=== PATIENT | male | born 1950 | race Caucasian/White ===

== ENCOUNTER 2017-08-22 21:13 | Inpatient (IN) ==
[2017-08-22] MEDS ORDERED: PIPERACILLIN/TAZOBACTAM 3,375 MG in SODIUM CHLORIDE 0.9% 100 ML IV STA (21:53)
[2017-08-22] MEDS ORDERED: FUROSEMIDE 100 MG/10 ML VIAL IV STA (21:53)
[2017-08-22] MEDS ORDERED: SODIUM CHLORIDE 0.9% 500 ML IV STA (21:53)
[2017-08-22] MEDS ORDERED: ONDANSETRON 4 MG/2 ML VIAL IV STA (21:53)
[2017-08-22] MEDS ORDERED: methylPREDNISolone SOD SUC 125 MG/2 ML VIAL IV STA (21:53)
[2017-08-22] MEDS ORDERED: ALBUTEROL 2.5 MG/3 ML NEB RESP TX SCH (22:00)
[2017-08-22] MEDS ORDERED: methylPREDNISolone SOD SUC 125 MG/2 ML VIAL ONE (22:03)
[2017-08-22] MEDS ORDERED: FUROSEMIDE 40 MG/4 ML VIAL ONE (22:03)
[2017-08-22] MEDS ORDERED: ONDANSETRON 4 MG/2 ML VIAL ONE (22:03)
[2017-08-22] MEDS ORDERED: FUROSEMIDE 20 MG/2 ML VIAL ONE (22:03)
[2017-08-22] MEDS ORDERED: PIPERACILLIN/TAZOBACTAM 3,375 MG VIAL IV ONE (22:03)
[2017-08-22 22:15] LABS: Basophils % 0.1 % (0.0-0.8); Eosinophils # 0.3 10*3/uL (0.0-0.87); Eosinophils % 1.5 % (0.00-10.9); Hematocrit 37.6 VOL% (42.0-52.0); Hemoglobin 12.7 GM/DL (14.0-18.0); Immature Granulocytes % 0.8 %; Immature Granulocytes Absolute 0.18 #; Lymphocytes # 3.2 10*3/uL (1.4-4.0); Lymphocytes % 14.3 % (21.2-54.2); Mean Corpuscular HGB Conc 33.8 GM/DL (32-36); Mean Corpuscular Hemoglobin 32 PG (27-34); Mean Corpuscular Volume 94.5 FL (87-102); Mean Platelet Volume 10.2 FL (9.6-12.0); Monocytes # 2.1 10*3/uL (0.11-0.8); Monocytes % 9.4 % (1.7-12.7); Neutrophils # 16.8 10*3/uL (1.4-7.4); Neutrophils % 73.9 % (38.7-73.9); Platelet Count 305 T/CUMM (130-400); Red Blood Count 3.98 MC/CUMM (3.8-5.5); Red Cell Distribution Width 13.5 % (9.3-17.3); White Blood Count 22.7 T/CUMM (4-12)
[2017-08-22 22:24] LABS: PT Patient Result 10.8 SECS
[2017-08-22 22:26] LABS: ABG HCO3 26.1 MMOL/L (20-26); ABG Oxygen Saturation 94.2 % (95-100); ABG PCO2 53.5 MM HG (35-48); ABG PH 7.341 (7.35-7.45); ABG PO2 78.1 MM HG (80-95); ABG TCO2 25.7 MMOL/L (23-27); Allen Test Positive
[2017-08-22 22:42] LABS: Albumin 2.6 G/DL (3.4-5.0); Bilirubin,Total 0.4 MG/DL (0.2-1.0); Calcium 8.3 MG/DL (8.5-10.1); Lactic Acid 1.2 MMOL/L (0.4-2.0); Potassium 4.5 MMOL/L (3.5-5.1); Total Protein 6.3 G/DL (6.4-8.3)
[2017-08-22 22:45] LABS: Troponin I Only 0.295 NG/ML (0.00-0.045)
[2017-08-22 23:21] LABS: Atypical Lymphocytes Few; Band Neutrophils 5 % (0-10); Eosinophils 3 % (0-10); Lymphocytes 15 % (20-55); Macrocytosis 1+; Platelet Estimate Normal; Segmented Neutrophils 70 % (50-85); Total Cells Counted 100
[2017-08-22 23:48] LABS: Apearance,Urine CLEAR (Clear); Bilirubin,Urine Negative (Negative); Blood, Urine Negative (Negative); Glucose,Urine (UA) Negative (Negative); Hyaline Casts,Urine 1 /LPF (0-3); Ketones,Urine Negative (Negative); Mucus,Urine Occasional /LPF (Occasional); Nitrite,Urine Negative (Negative); Protein,Urine Negative; Urine Color Straw (Yellow); Urine Specific Gravity 1.008 (1.001-1.035); Urine Urobilinogen < 2.0 EU/DL (0.2-1.0); WBC,Urine <1 /HPF (0-6)
[2017-08-23] MEDS ORDERED: SODIUM CHLORIDE 0.9% 1,000 ML IV SCH (02:34)
[2017-08-23] MEDS ORDERED: ALBUTEROL 2.5 MG/3 ML NEB RESP TX PRN (02:34)
[2017-08-23] MEDS ORDERED: PROMETHAZINE 25 MG/1 ML VIAL IM PRN (02:34)
[2017-08-23] MEDS ORDERED: MORPHINE 2 MG/1 ML SYRINGE IV PRN (02:34)
[2017-08-23] MEDS ORDERED: LACTULOSE 20 GM/30 ML UDCUP PO PRN (02:34)
[2017-08-23] MEDS ORDERED: PROMETHAZINE 25 MG TABLET PO PRN (02:34)
[2017-08-23] MEDS ORDERED: DOCUSATE SODIUM 100 MG CAPSULE PO PRN (02:34)
[2017-08-23] MEDS ORDERED: ONDANSETRON 4 MG/2 ML VIAL IV PRN (02:34)
[2017-08-23] MEDS: LEVOFLOXACIN INJ 500 MG in PREMIX 1 EACH IV SCH (03:05)
[2017-08-23] MEDS: ENOXAPARIN 40 MG/0.4 ML SYRINGE SUBCUT SCH ×2 (03:05→20:24)
[2017-08-23 04:45] LABS: Basophils % 0.1 % (0.0-0.8); Hematocrit 36.6 VOL% (42.0-52.0); Hemoglobin 12.5 GM/DL (14.0-18.0); Immature Granulocytes % 1.4 %; Immature Granulocytes Absolute 0.31 #; Lymphocytes # 1.9 10*3/uL (1.4-4.0); Lymphocytes % 8.6 % (21.2-54.2); Mean Corpuscular HGB Conc 34.2 GM/DL (32-36); Mean Corpuscular Hemoglobin 31 PG (27-34); Mean Platelet Volume 10.3 FL (9.6-12.0); Monocytes # 0.6 10*3/uL (0.11-0.8); Neutrophils # 18.8 10*3/uL (1.4-7.4); Neutrophils % 86.9 % (38.7-73.9); Platelet Count 278 T/CUMM (130-400); Red Blood Count 3.98 MC/CUMM (3.8-5.5); Red Cell Distribution Width 13.3 % (9.3-17.3); White Blood Count 21.6 T/CUMM (4-12)
[2017-08-23 05:10] LABS: Band Neutrophils 1 % (0-10); Giant Platelets Few; Hypochromasia 1+; Lymphocytes 9 % (20-55); Ovalocytes Slight; Platelet Estimate Adequate; Segmented Neutrophils 89 % (50-85); Total Cells Counted 100
[2017-08-23 05:16] LABS: Albumin 2.6 G/DL (3.4-5.0); Bilirubin,Total 0.7 MG/DL (0.2-1.0); Calcium 7.7 MG/DL (8.5-10.1); Osmolality,Calculated 284.8 MOS/KG (273-304); Potassium 4.4 MMOL/L (3.5-5.1); Total Protein 5.9 G/DL (6.4-8.3)
[2017-08-23] MEDS: PIPERACILLIN/TAZOBACTAM 3,375 MG in SODIUM CHLORIDE 0.9% 100 ML IV SCH ×3 (05:27→14:44)
[2017-08-23] MEDS: ALBUTEROL/IPRATROPIUM 3 ML NEB RESP TX SCH ×3 (07:21→19:58)
[2017-08-23] MEDS ORDERED: ASPIRIN EC 325 MG TABLET PO SCH (09:00)
[2017-08-23 09:12] LABS: Lymphocytes,Pleural Fluid 19 %; Monocytes,Pleural Fluid 11 %; Neutrophils,Pleural Fluid 70 %
[2017-08-23 09:14] LABS: RBC,Pleural Fluid 7494 T/CUMM
[2017-08-23] MEDS: PANTOPRAZOLE 40 MG TABLET PO SCH (09:55)
[2017-08-23 10:36] LABS: Troponin I Only 0.114 NG/ML (0.00-0.045)
[2017-08-23] MEDS: DIVALPROEX 250 MG TABLET PO SCH ×2 (14:41→20:24)
[2017-08-23] MEDS: SODIUM CHLORIDE 0.45% 1,000 ML IV SCH (17:37)
[2017-08-23] MEDS: traZODone 50 MG TABLET PO SCH (20:23)
[2017-08-23] MEDS: LATANOPROST 0.005% OPH SOLN 2.5 ML BOTTLE BOTH EYES SCH (20:24)
[2017-08-23] MEDS ORDERED: DORZOLAMIDE/TIMOLOL OPH SOLN 10 ML BOTTLE BOTH EYES SCH (21:00)
[2017-08-24] MEDS: ALBUTEROL/IPRATROPIUM 3 ML NEB RESP TX SCH ×4 (00:08→19:09)
[2017-08-24] MEDS: PHENOL 1.4% THROAT SPRAY 177 ML BOTTLE PO PRN (00:19)
[2017-08-24] MEDS: LEVOFLOXACIN INJ 500 MG in PREMIX 1 EACH IV SCH (03:54)
[2017-08-24 06:07] LABS: Basophils % 0.1 % (0.0-0.8); Hemoglobin 11.4 GM/DL (14.0-18.0); Immature Granulocytes % 1.3 %; Immature Granulocytes Absolute 0.25 #; Lymphocytes # 2.5 10*3/uL (1.4-4.0); Lymphocytes % 12.7 % (21.2-54.2); Mean Corpuscular HGB Conc 33.5 GM/DL (32-36); Mean Corpuscular Hemoglobin 32 PG (27-34); Mean Platelet Volume 10.5 FL (9.6-12.0); Monocytes # 1.3 10*3/uL (0.11-0.8); Monocytes % 6.8 % (1.7-12.7); Neutrophils # 15.4 10*3/uL (1.4-7.4); Neutrophils % 79.1 % (38.7-73.9); Platelet Count 295 T/CUMM (130-400); Red Blood Count 3.58 MC/CUMM (3.8-5.5); Red Cell Distribution Width 13.5 % (9.3-17.3); White Blood Count 19.5 T/CUMM (4-12)
[2017-08-24] MEDS: PIPERACILLIN/TAZOBACTAM 3,375 MG in SODIUM CHLORIDE 0.9% 100 ML IV SCH ×4 (06:21→22:20)
[2017-08-24] MEDS: SODIUM CHLORIDE 0.45% 1,000 ML IV SCH (06:32)
[2017-08-24 06:36] LABS: Calcium 7.7 MG/DL (8.5-10.1); Osmolality,Calculated 285.5 MOS/KG (273-304); Potassium 4.6 MMOL/L (3.5-5.1)
[2017-08-24] MEDS: MULTIVITAMIN (CENTRUM) TABLET PO SCH (09:09)
[2017-08-24] MEDS: DIVALPROEX 250 MG TABLET PO SCH ×2 (09:09→20:25)
[2017-08-24] MEDS: BISOPROLOL/HCTZ 2.5-6.25 MG TABLET PO SCH (09:09)
[2017-08-24] MEDS: ASPIRIN EC 81 MG TABLET PO SCH (09:09)
[2017-08-24] MEDS: CHOLECALCIFEROL 5,000 UNIT TABLET PO SCH (09:09)
[2017-08-24] MEDS: MONTELUKAST 10 MG TABLET PO SCH (09:10)
[2017-08-24] MEDS: PANTOPRAZOLE 40 MG TABLET PO SCH (09:10)
[2017-08-24] MEDS ORDERED: PIPERACILLIN/TAZOBACTAM 3,375 MG VIAL IV ONE (14:09)
[2017-08-24] MEDS ORDERED: DIGOXIN 0.5 MG/2 ML AMP IV ONE (14:44)
[2017-08-24] MEDS ORDERED: DIGOXIN 0.5 MG/2 ML AMP ONE (14:59)
[2017-08-24] MEDS ORDERED: SODIUM CHLORIDE 0.45% 1,000 ML IV SCH (15:00)
[2017-08-24] MEDS: traZODone 50 MG TABLET PO SCH (20:25)
[2017-08-24] MEDS: ENOXAPARIN 40 MG/0.4 ML SYRINGE SUBCUT SCH (20:26)
[2017-08-24] MEDS: LATANOPROST 0.005% OPH SOLN 2.5 ML BOTTLE BOTH EYES SCH (20:29)
[2017-08-25] MEDS: ALBUTEROL/IPRATROPIUM 3 ML NEB RESP TX SCH ×4 (00:32→20:02)
[2017-08-25] MEDS: LEVOFLOXACIN INJ 500 MG in PREMIX 1 EACH IV SCH (02:23)
[2017-08-25 06:01] LABS: Basophils % 0.2 % (0.0-0.8); Eosinophils # 0.1 10*3/uL (0.0-0.87); Eosinophils % 0.8 % (0.00-10.9); Hematocrit 34.6 VOL% (42.0-52.0); Hemoglobin 11.6 GM/DL (14.0-18.0); Immature Granulocytes % 2.5 %; Immature Granulocytes Absolute 0.33 #; Lymphocytes # 2.7 10*3/uL (1.4-4.0); Lymphocytes % 20.8 % (21.2-54.2); Mean Corpuscular HGB Conc 33.5 GM/DL (32-36); Mean Corpuscular Hemoglobin 31 PG (27-34); Mean Corpuscular Volume 93.5 FL (87-102); Mean Platelet Volume 10.3 FL (9.6-12.0); Monocytes # 1.9 10*3/uL (0.11-0.8); Monocytes % 14.7 % (1.7-12.7); Platelet Count 310 T/CUMM (130-400); Red Cell Distribution Width 13.7 % (9.3-17.3); White Blood Count 13.1 T/CUMM (4-12)
[2017-08-25] MEDS: PIPERACILLIN/TAZOBACTAM 3,375 MG in SODIUM CHLORIDE 0.9% 100 ML IV SCH ×3 (06:12→22:19)
[2017-08-25 06:16] LABS: Calcium 7.8 MG/DL (8.5-10.1); Osmolality,Calculated 276.8 MOS/KG (273-304); Potassium 4.8 MMOL/L (3.5-5.1)
[2017-08-25] MEDS: CHOLECALCIFEROL 5,000 UNIT TABLET PO SCH (09:45)
[2017-08-25] MEDS: MULTIVITAMIN (CENTRUM) TABLET PO SCH (09:45)
[2017-08-25] MEDS: ASPIRIN EC 81 MG TABLET PO SCH (09:45)
[2017-08-25] MEDS: MONTELUKAST 10 MG TABLET PO SCH (09:45)
[2017-08-25] MEDS: PANTOPRAZOLE 40 MG TABLET PO SCH (09:45)
[2017-08-25] MEDS: BISOPROLOL/HCTZ 2.5-6.25 MG TABLET PO SCH (09:45)
[2017-08-25] MEDS: DIVALPROEX 250 MG TABLET PO SCH ×2 (09:46→20:22)
[2017-08-25] MEDS: LACTOBACILLUS ACIDOPHILUS/BULGARICUS CAPLET PO SCH (12:28)
[2017-08-25] MEDS: LATANOPROST 0.005% OPH SOLN 2.5 ML BOTTLE BOTH EYES SCH (20:22)
[2017-08-25] MEDS: traZODone 50 MG TABLET PO SCH (20:22)
[2017-08-25] MEDS: ENOXAPARIN 40 MG/0.4 ML SYRINGE SUBCUT SCH (20:23)
[2017-08-26] MEDS: ALBUTEROL/IPRATROPIUM 3 ML NEB RESP TX SCH ×4 (00:45→20:27)
[2017-08-26] MEDS: PHENOL 1.4% THROAT SPRAY 177 ML BOTTLE PO PRN (01:30)
[2017-08-26] MEDS: LEVOFLOXACIN INJ 500 MG in PREMIX 1 EACH IV SCH (02:40)
[2017-08-26 05:51] LABS: Basophils % 0.2 % (0.0-0.8); Eosinophils # 0.2 10*3/uL (0.0-0.87); Eosinophils % 1.4 % (0.00-10.9); Hematocrit 35.6 VOL% (42.0-52.0); Hemoglobin 12.4 GM/DL (14.0-18.0); Immature Granulocytes Absolute 0.62 #; Lymphocytes % 19.2 % (21.2-54.2); Mean Corpuscular HGB Conc 34.8 GM/DL (32-36); Mean Corpuscular Hemoglobin 32 PG (27-34); Mean Corpuscular Volume 91.3 FL (87-102); Mean Platelet Volume 9.9 FL (9.6-12.0); Neutrophils # 9.6 10*3/uL (1.4-7.4); Neutrophils % 62.2 % (38.7-73.9); Platelet Count 310 T/CUMM (130-400); Red Cell Distribution Width 13.8 % (9.3-17.3); White Blood Count 15.4 T/CUMM (4-12)
[2017-08-26 06:22] LABS: Eosinophils 2 % (0-10); Giant Platelets Few; Hypochromasia 1+; Lymphocytes 16 % (20-55); Ovalocytes Slight; Platelet Estimate Adequate; Segmented Neutrophils 71 % (50-85); Total Cells Counted 100
[2017-08-26] MEDS: PIPERACILLIN/TAZOBACTAM 3,375 MG in SODIUM CHLORIDE 0.9% 100 ML IV SCH ×3 (06:30→22:09)
[2017-08-26 06:34] LABS: Albumin 2.3 G/DL (3.4-5.0); Bilirubin,Total 0.8 MG/DL (0.2-1.0); Calcium 8.1 MG/DL (8.5-10.1); Osmolality,Calculated 269.2 MOS/KG (273-304); Potassium 4.6 MMOL/L (3.5-5.1); Total Protein 5.8 G/DL (6.4-8.3)
[2017-08-26] MEDS: ASPIRIN EC 81 MG TABLET PO SCH (08:50)
[2017-08-26] MEDS: MULTIVITAMIN (CENTRUM) TABLET PO SCH (08:57)
[2017-08-26] MEDS: LACTOBACILLUS ACIDOPHILUS/BULGARICUS CAPLET PO SCH (08:57)
[2017-08-26] MEDS: PANTOPRAZOLE 40 MG TABLET PO SCH (08:57)
[2017-08-26] MEDS: MONTELUKAST 10 MG TABLET PO SCH (08:58)
[2017-08-26] MEDS: CHOLECALCIFEROL 5,000 UNIT TABLET PO SCH (08:58)
[2017-08-26] MEDS: BISOPROLOL/HCTZ 2.5-6.25 MG TABLET PO SCH (09:01)
[2017-08-26] MEDS: DIVALPROEX 250 MG TABLET PO SCH ×2 (09:01→22:06)
[2017-08-26] MEDS: SODIUM CHLORIDE 0.45% 1,000 ML IV SCH (22:06)
[2017-08-26] MEDS: traZODone 50 MG TABLET PO SCH (22:07)
[2017-08-26] MEDS: ENOXAPARIN 40 MG/0.4 ML SYRINGE SUBCUT SCH (22:08)
[2017-08-26] MEDS: LATANOPROST 0.005% OPH SOLN 2.5 ML BOTTLE BOTH EYES SCH (22:08)
[2017-08-27] MEDS: ALBUTEROL/IPRATROPIUM 3 ML NEB RESP TX SCH ×4 (02:09→18:50)
[2017-08-27] MEDS: LEVOFLOXACIN INJ 500 MG in PREMIX 1 EACH IV SCH (02:28)
[2017-08-27 05:41] LABS: Bilirubin,Total 0.5 MG/DL (0.2-1.0); Calcium 8.4 MG/DL (8.5-10.1); Osmolality,Calculated 270.1 MOS/KG (273-304); Potassium 4.7 MMOL/L (3.5-5.1); Total Protein 5.8 G/DL (6.4-8.3)
[2017-08-27] MEDS: PIPERACILLIN/TAZOBACTAM 3,375 MG in SODIUM CHLORIDE 0.9% 100 ML IV SCH ×3 (06:00→23:33)
[2017-08-27 06:03] LABS: Basophils # 0.1 10*3/uL (0.0-0.2); Basophils % 0.4 % (0.0-0.8); Eosinophils # 0.4 10*3/uL (0.0-0.87); Eosinophils % 2.5 % (0.00-10.9); Hematocrit 35.5 VOL% (42.0-52.0); Hemoglobin 11.8 GM/DL (14.0-18.0); Immature Granulocytes Absolute 0.81 #; Lymphocytes # 3.2 10*3/uL (1.4-4.0); Mean Corpuscular HGB Conc 33.2 GM/DL (32-36); Mean Corpuscular Hemoglobin 32 PG (27-34); Mean Corpuscular Volume 94.9 FL (87-102); Monocytes # 1.9 10*3/uL (0.11-0.8); Monocytes % 11.6 % (1.7-12.7); Neutrophils # 9.8 10*3/uL (1.4-7.4); Neutrophils % 60.5 % (38.7-73.9); Platelet Count 331 T/CUMM (130-400); Red Blood Count 3.74 MC/CUMM (3.8-5.5); Red Cell Distribution Width 13.7 % (9.3-17.3); White Blood Count 16.2 T/CUMM (4-12)
[2017-08-27 06:05] LABS: Eosinophils 3 % (0-10); Hypochromasia 1+; Lymphocytes 13 % (20-55); Microcytosis Slight; Platelet Estimate Adequate; Segmented Neutrophils 69 % (50-85); Total Cells Counted 100
[2017-08-27] MEDS: CHOLECALCIFEROL 5,000 UNIT TABLET PO SCH (09:02)
[2017-08-27] MEDS: PANTOPRAZOLE 40 MG TABLET PO SCH (09:02)
[2017-08-27] MEDS: LACTOBACILLUS ACIDOPHILUS/BULGARICUS CAPLET PO SCH (09:02)
[2017-08-27] MEDS: DIVALPROEX 250 MG TABLET PO SCH ×2 (09:02→20:14)
[2017-08-27] MEDS: MULTIVITAMIN (CENTRUM) TABLET PO SCH (09:02)
[2017-08-27] MEDS: MONTELUKAST 10 MG TABLET PO SCH (09:03)
[2017-08-27] MEDS: ASPIRIN EC 81 MG TABLET PO SCH (09:03)
[2017-08-27] MEDS: BISOPROLOL/HCTZ 2.5-6.25 MG TABLET PO SCH (09:03)
[2017-08-27] MEDS ORDERED: LIDOCAINE 2% 20 ML VIAL MISC INJ ONE (11:00)
[2017-08-27] MEDS ORDERED: MORPHINE 10 MG/1 ML VIAL ONE (12:57)
[2017-08-27] MEDS ORDERED: ALTEPLASE 5 MG in SYRINGE 1 EACH INTRAPLEUR ONE (13:00)
[2017-08-27] MEDS ORDERED: MORPHINE 10 MG/1 ML VIAL IV ONE (14:32)
[2017-08-27] MEDS: SODIUM CHLORIDE 0.45% 1,000 ML IV SCH (19:25)
[2017-08-27] MEDS: traZODone 50 MG TABLET PO SCH (20:14)
[2017-08-27] MEDS: ENOXAPARIN 40 MG/0.4 ML SYRINGE SUBCUT SCH (20:15)
[2017-08-27] MEDS: LATANOPROST 0.005% OPH SOLN 2.5 ML BOTTLE BOTH EYES SCH (20:15)
[2017-08-28] MEDS: ALBUTEROL/IPRATROPIUM 3 ML NEB RESP TX SCH ×4 (00:30→19:59)
[2017-08-28] MEDS: LEVOFLOXACIN INJ 500 MG in PREMIX 1 EACH IV SCH (03:41)
[2017-08-28] MEDS: PIPERACILLIN/TAZOBACTAM 3,375 MG in SODIUM CHLORIDE 0.9% 100 ML IV SCH ×3 (06:02→23:15)
[2017-08-28] MEDS: LACTOBACILLUS ACIDOPHILUS/BULGARICUS CAPLET PO SCH (08:16)
[2017-08-28] MEDS: DIVALPROEX 250 MG TABLET PO SCH ×2 (08:16→20:48)
[2017-08-28] MEDS: ASPIRIN EC 81 MG TABLET PO SCH (08:17)
[2017-08-28] MEDS: BISOPROLOL/HCTZ 2.5-6.25 MG TABLET PO SCH (08:17)
[2017-08-28] MEDS: MONTELUKAST 10 MG TABLET PO SCH (08:17)
[2017-08-28] MEDS: MULTIVITAMIN (CENTRUM) TABLET PO SCH (08:17)
[2017-08-28] MEDS: PANTOPRAZOLE 40 MG TABLET PO SCH (08:17)
[2017-08-28] MEDS: CHOLECALCIFEROL 5,000 UNIT TABLET PO SCH (08:17)
[2017-08-28] MEDS: SODIUM CHLORIDE 0.45% 1,000 ML IV SCH (12:39)
[2017-08-28] MEDS: VANCOMYCIN INJ 1,250 MG in SODIUM CHLORIDE 0.9% 250 ML IV SCH (13:30)
[2017-08-28] MEDS: ENOXAPARIN 40 MG/0.4 ML SYRINGE SUBCUT SCH (20:48)
[2017-08-28] MEDS: traZODone 50 MG TABLET PO SCH (20:48)
[2017-08-28] MEDS: LATANOPROST 0.005% OPH SOLN 2.5 ML BOTTLE BOTH EYES SCH (20:54)
[2017-08-29] MEDS: ALBUTEROL/IPRATROPIUM 3 ML NEB RESP TX SCH ×4 (00:42→19:25)
[2017-08-29] MEDS: VANCOMYCIN INJ 1,250 MG in SODIUM CHLORIDE 0.9% 250 ML IV SCH ×2 (03:32→14:29)
[2017-08-29] MEDS: LEVOFLOXACIN INJ 500 MG in PREMIX 1 EACH IV SCH (05:01)
[2017-08-29 05:59] LABS: Basophils # 0.1 10*3/uL (0.0-0.2); Basophils % 0.3 % (0.0-0.8); Eosinophils # 0.3 10*3/uL (0.0-0.87); Eosinophils % 2.2 % (0.00-10.9); Hematocrit 33.4 VOL% (42.0-52.0); Hemoglobin 11.5 GM/DL (14.0-18.0); Immature Granulocytes % 8.7 %; Immature Granulocytes Absolute 1.29 #; Lymphocytes % 19.9 % (21.2-54.2); Mean Corpuscular HGB Conc 34.4 GM/DL (32-36); Mean Corpuscular Hemoglobin 32 PG (27-34); Mean Platelet Volume 9.6 FL (9.6-12.0); Monocytes # 1.7 10*3/uL (0.11-0.8); Monocytes % 11.1 % (1.7-12.7); Neutrophils # 8.6 10*3/uL (1.4-7.4); Neutrophils % 57.8 % (38.7-73.9); Platelet Count 349 T/CUMM (130-400); Red Blood Count 3.63 MC/CUMM (3.8-5.5); Red Cell Distribution Width 13.4 % (9.3-17.3); White Blood Count 14.9 T/CUMM (4-12)
[2017-08-29 06:22] LABS: Band Neutrophils 2 % (0-10); Eosinophils 4 % (0-10); Lymphocytes 15 % (20-55); Segmented Neutrophils 68 % (50-85); Total Cells Counted 100
[2017-08-29 06:23] LABS: Giant Platelets Few; Hypochromasia 1+; Microcytosis Slight; Platelet Estimate Adequate
[2017-08-29 06:25] LABS: Bilirubin,Total 0.5 MG/DL (0.2-1.0); Calcium 7.8 MG/DL (8.5-10.1); Potassium 4.2 MMOL/L (3.5-5.1); Total Protein 5.3 G/DL (6.4-8.3)
[2017-08-29] MEDS: PIPERACILLIN/TAZOBACTAM 3,375 MG in SODIUM CHLORIDE 0.9% 100 ML IV SCH ×2 (07:25→17:25)
[2017-08-29] MEDS: LACTOBACILLUS ACIDOPHILUS/BULGARICUS CAPLET PO SCH (08:57)
[2017-08-29] MEDS: MULTIVITAMIN (CENTRUM) TABLET PO SCH (08:57)
[2017-08-29] MEDS: CHOLECALCIFEROL 5,000 UNIT TABLET PO SCH (08:57)
[2017-08-29] MEDS: BISOPROLOL/HCTZ 2.5-6.25 MG TABLET PO SCH (08:57)
[2017-08-29] MEDS: MONTELUKAST 10 MG TABLET PO SCH (08:57)
[2017-08-29] MEDS: DIVALPROEX 250 MG TABLET PO SCH ×2 (08:58→20:14)
[2017-08-29] MEDS: ASPIRIN EC 81 MG TABLET PO SCH (08:58)
[2017-08-29] MEDS: PANTOPRAZOLE 40 MG TABLET PO SCH (08:58)
[2017-08-29] MEDS: SODIUM CHLORIDE 0.45% 1,000 ML IV SCH (09:46)
[2017-08-29] MEDS ORDERED: LIDOCAINE 1% 20 ML VIAL MISC INJ ONE (12:15)
[2017-08-29] MEDS ORDERED: ALTEPLASE 2 MG VIAL INTRAPLEUR ONE (12:16)
[2017-08-29] MEDS ORDERED: ALTEPLASE 5 MG in SYRINGE 1 EACH INTRAPLEUR ONE (14:00)
[2017-08-29] MEDS: LATANOPROST 0.005% OPH SOLN 2.5 ML BOTTLE BOTH EYES SCH (20:14)
[2017-08-29] MEDS: traZODone 50 MG TABLET PO SCH (20:14)
[2017-08-29] MEDS: ENOXAPARIN 40 MG/0.4 ML SYRINGE SUBCUT SCH (20:14)
[2017-08-30] MEDS: ALBUTEROL/IPRATROPIUM 3 ML NEB RESP TX SCH ×4 (01:00→19:15)
[2017-08-30] MEDS: SODIUM CHLORIDE 0.45% 1,000 ML IV SCH ×2 (01:10→13:07)
[2017-08-30] MEDS: VANCOMYCIN INJ 1,250 MG in SODIUM CHLORIDE 0.9% 250 ML IV SCH ×4 (01:11→21:34)
[2017-08-30] MEDS: LEVOFLOXACIN INJ 500 MG in PREMIX 1 EACH IV SCH (02:20)
[2017-08-30] MEDS: PIPERACILLIN/TAZOBACTAM 3,375 MG in SODIUM CHLORIDE 0.9% 100 ML IV SCH ×3 (03:01→17:10)
[2017-08-30] MEDS: LACTOBACILLUS ACIDOPHILUS/BULGARICUS CAPLET PO SCH (08:50)
[2017-08-30] MEDS: MULTIVITAMIN (CENTRUM) TABLET PO SCH (08:50)
[2017-08-30] MEDS: DIVALPROEX 250 MG TABLET PO SCH ×2 (08:50→20:26)
[2017-08-30] MEDS: BISOPROLOL/HCTZ 2.5-6.25 MG TABLET PO SCH (08:51)
[2017-08-30] MEDS: CHOLECALCIFEROL 5,000 UNIT TABLET PO SCH (08:51)
[2017-08-30] MEDS: MONTELUKAST 10 MG TABLET PO SCH (08:51)
[2017-08-30] MEDS: PANTOPRAZOLE 40 MG TABLET PO SCH (08:51)
[2017-08-30] MEDS: ASPIRIN EC 81 MG TABLET PO SCH (08:51)
[2017-08-30] MEDS: traZODone 50 MG TABLET PO SCH (20:26)
[2017-08-30] MEDS: LATANOPROST 0.005% OPH SOLN 2.5 ML BOTTLE BOTH EYES SCH (20:26)
[2017-08-30] MEDS: ENOXAPARIN 40 MG/0.4 ML SYRINGE SUBCUT SCH (20:27)
[2017-08-31] MEDS: ALBUTEROL/IPRATROPIUM 3 ML NEB RESP TX SCH ×4 (00:12→19:59)
[2017-08-31] MEDS: PIPERACILLIN/TAZOBACTAM 3,375 MG in SODIUM CHLORIDE 0.9% 100 ML IV SCH ×3 (01:02→16:08)
[2017-08-31] MEDS: LEVOFLOXACIN INJ 500 MG in PREMIX 1 EACH IV SCH (02:50)
[2017-08-31] MEDS: VANCOMYCIN INJ 1,250 MG in SODIUM CHLORIDE 0.9% 250 ML IV SCH ×3 (05:45→22:38)
[2017-08-31] MEDS: PANTOPRAZOLE 40 MG TABLET PO SCH (09:32)
[2017-08-31] MEDS: MULTIVITAMIN (CENTRUM) TABLET PO SCH (09:33)
[2017-08-31] MEDS: DIVALPROEX 250 MG TABLET PO SCH ×2 (09:33→22:38)
[2017-08-31] MEDS: CHOLECALCIFEROL 5,000 UNIT TABLET PO SCH (09:33)
[2017-08-31] MEDS: ASPIRIN EC 81 MG TABLET PO SCH (09:33)
[2017-08-31] MEDS: MONTELUKAST 10 MG TABLET PO SCH (09:34)
[2017-08-31] MEDS: LACTOBACILLUS ACIDOPHILUS/BULGARICUS CAPLET PO SCH (09:34)
[2017-08-31] MEDS: BISOPROLOL/HCTZ 2.5-6.25 MG TABLET PO SCH (09:34)
[2017-08-31] MEDS: SODIUM CHLORIDE 0.45% 1,000 ML IV SCH (16:08)
[2017-08-31] MEDS: ENOXAPARIN 40 MG/0.4 ML SYRINGE SUBCUT SCH (22:38)
[2017-08-31] MEDS: traZODone 50 MG TABLET PO SCH (22:38)
[2017-08-31] MEDS: LATANOPROST 0.005% OPH SOLN 2.5 ML BOTTLE BOTH EYES SCH (22:39)
[2017-09-01] MEDS: PIPERACILLIN/TAZOBACTAM 3,375 MG in SODIUM CHLORIDE 0.9% 100 ML IV SCH ×3 (00:45→17:57)
[2017-09-01] MEDS: ALBUTEROL/IPRATROPIUM 3 ML NEB RESP TX SCH ×4 (01:06→19:02)
[2017-09-01] MEDS: LEVOFLOXACIN INJ 500 MG in PREMIX 1 EACH IV SCH (04:20)
[2017-09-01] MEDS: VANCOMYCIN INJ 1,250 MG in SODIUM CHLORIDE 0.9% 250 ML IV SCH (06:20)
[2017-09-01 06:47] LABS: Basophils # 0.1 10*3/uL (0.0-0.2); Basophils % 0.4 % (0.0-0.8); Eosinophils # 0.4 10*3/uL (0.0-0.87); Eosinophils % 3.1 % (0.00-10.9); Hematocrit 31.3 VOL% (42.0-52.0); Hemoglobin 10.6 GM/DL (14.0-18.0); Immature Granulocytes % 6.7 %; Immature Granulocytes Absolute 0.93 #; Lymphocytes # 2.6 10*3/uL (1.4-4.0); Lymphocytes % 18.4 % (21.2-54.2); Mean Corpuscular HGB Conc 33.9 GM/DL (32-36); Mean Corpuscular Hemoglobin 32 PG (27-34); Mean Corpuscular Volume 93.2 FL (87-102); Mean Platelet Volume 9.6 FL (9.6-12.0); Monocytes # 1.3 10*3/uL (0.11-0.8); Monocytes % 9.1 % (1.7-12.7); Neutrophils # 8.7 10*3/uL (1.4-7.4); Neutrophils % 62.3 % (38.7-73.9); Platelet Count 430 T/CUMM (130-400); Red Blood Count 3.36 MC/CUMM (3.8-5.5); Red Cell Distribution Width 13.6 % (9.3-17.3); White Blood Count 13.9 T/CUMM (4-12)
[2017-09-01 07:16] LABS: Band Neutrophils 1 % (0-10); Eosinophils 3 % (0-10); Lymphocytes 15 % (20-55); Metamyelocytes 1 %; Myelocytes 1 %; Segmented Neutrophils 72 % (50-85); Total Cells Counted 100
[2017-09-01 07:17] LABS: Hypochromasia 1+
[2017-09-01 07:18] LABS: Microcytosis Slight; Platelet Estimate Increased
[2017-09-01 07:25] LABS: Calcium 7.7 MG/DL (8.5-10.1); Osmolality,Calculated 273.7 MOS/KG (273-304); Potassium 4.2 MMOL/L (3.5-5.1)
[2017-09-01] MEDS: MONTELUKAST 10 MG TABLET PO SCH (09:34)
[2017-09-01] MEDS: PANTOPRAZOLE 40 MG TABLET PO SCH (09:35)
[2017-09-01] MEDS: CHOLECALCIFEROL 5,000 UNIT TABLET PO SCH (09:35)
[2017-09-01] MEDS: MULTIVITAMIN (CENTRUM) TABLET PO SCH (09:35)
[2017-09-01] MEDS: DIVALPROEX 250 MG TABLET PO SCH ×2 (09:35→21:32)
[2017-09-01] MEDS: LACTOBACILLUS ACIDOPHILUS/BULGARICUS CAPLET PO SCH (09:35)
[2017-09-01] MEDS: ASPIRIN EC 81 MG TABLET PO SCH (09:35)
[2017-09-01] MEDS: BISOPROLOL/HCTZ 2.5-6.25 MG TABLET PO SCH (09:35)
[2017-09-01] MEDS ORDERED: ACETAMINOPHEN 325 MG TABLET PO PRN (10:48)
[2017-09-01] MEDS ORDERED: IBUPROFEN 800 MG TABLET PO PRN (10:48)
[2017-09-01] MEDS: SODIUM CHLORIDE 0.45% 1,000 ML IV SCH (18:00)
[2017-09-01] MEDS: traZODone 50 MG TABLET PO SCH (21:31)
[2017-09-01] MEDS: LATANOPROST 0.005% OPH SOLN 2.5 ML BOTTLE BOTH EYES SCH (21:32)
[2017-09-01] MEDS: ENOXAPARIN 40 MG/0.4 ML SYRINGE SUBCUT SCH (21:32)
[2017-09-02] MEDS: ALBUTEROL/IPRATROPIUM 3 ML NEB RESP TX SCH ×3 (00:03→13:15)
[2017-09-02] MEDS: PIPERACILLIN/TAZOBACTAM 3,375 MG in SODIUM CHLORIDE 0.9% 100 ML IV SCH ×2 (00:18→09:10)
[2017-09-02] MEDS: LEVOFLOXACIN INJ 500 MG in PREMIX 1 EACH IV SCH (05:13)
[2017-09-02] MEDS: SODIUM CHLORIDE 0.45% 1,000 ML IV SCH (05:15)
[2017-09-02 05:52] LABS: Basophils % 0.3 % (0.0-0.8); Eosinophils # 0.4 10*3/uL (0.0-0.87); Eosinophils % 2.8 % (0.00-10.9); Hematocrit 32.6 VOL% (42.0-52.0); Hemoglobin 10.6 GM/DL (14.0-18.0); Immature Granulocytes % 4.7 %; Immature Granulocytes Absolute 0.66 #; Lymphocytes # 2.4 10*3/uL (1.4-4.0); Lymphocytes % 16.9 % (21.2-54.2); Mean Corpuscular HGB Conc 32.5 GM/DL (32-36); Mean Corpuscular Hemoglobin 31 PG (27-34); Mean Corpuscular Volume 95.9 FL (87-102); Mean Platelet Volume 9.3 FL (9.6-12.0); Monocytes # 1.4 10*3/uL (0.11-0.8); Neutrophils # 9.2 10*3/uL (1.4-7.4); Neutrophils % 65.3 % (38.7-73.9); Platelet Count 467 T/CUMM (130-400); Red Cell Distribution Width 13.7 % (9.3-17.3); White Blood Count 14.1 T/CUMM (4-12)
[2017-09-02 06:17] LABS: Band Neutrophils 4 % (0-10); Eosinophils 2 % (0-10); Lymphocytes 23 % (20-55); Platelet Estimate Normal; Segmented Neutrophils 65 % (50-85); Total Cells Counted 100
[2017-09-02 06:18] LABS: Macrocytosis 1+
[2017-09-02 06:26] LABS: Albumin 1.9 G/DL (3.4-5.0); Bilirubin,Total 0.4 MG/DL (0.2-1.0); Calcium 8.1 MG/DL (8.5-10.1); Osmolality,Calculated 285.8 MOS/KG (273-304); Potassium 4.5 MMOL/L (3.5-5.1); Total Protein 5.4 G/DL (6.4-8.3)
[2017-09-02] MEDS: LACTOBACILLUS ACIDOPHILUS/BULGARICUS CAPLET PO SCH (09:09)
[2017-09-02] MEDS: BISOPROLOL/HCTZ 2.5-6.25 MG TABLET PO SCH (09:10)
[2017-09-02] MEDS: ASPIRIN EC 81 MG TABLET PO SCH (09:10)
[2017-09-02] MEDS: DIVALPROEX 250 MG TABLET PO SCH (09:10)
[2017-09-02] MEDS: MULTIVITAMIN (CENTRUM) TABLET PO SCH (09:10)
[2017-09-02] MEDS: MONTELUKAST 10 MG TABLET PO SCH (09:10)
[2017-09-02] MEDS: CHOLECALCIFEROL 5,000 UNIT TABLET PO SCH (09:10)
[2017-09-02] MEDS: PANTOPRAZOLE 40 MG TABLET PO SCH (09:10)
[2017-09-02] MEDS ORDERED: VANCOMYCIN INJ 1,250 MG in SODIUM CHLORIDE 0.9% 250 ML IV SCH (11:30)
[2017-09-02 12:14] VITALS: BP 129/73
== END 2017-09-02 15:27 | disposition home or self-care (01) | DRG 871 ==
LOC: N.ED 21:13 → N.EDINP 08-23 01:16 → SUATTDRO 08-23 01:16 → N.CC 08-23 01:34 → N.5E 08-23 11:18
PROVIDERS: ADMIT Family Medicine; ATTEND Internal Medicine